=== PATIENT | male | born 1945 | race Caucasian/White ===

== ENCOUNTER 2024-05-09 09:47 | Inpatient (IN) | payer MEDICARE ==
[~2024-05-09] VITALS: Ht 182.9 cm; Wt 82.8 kg
[2024-05-09 10:28] LABS: BASOPHILS # (AUTO) 0.03 K/uL (0.00-0.20); BASOPHILS % (AUTO) 0.2 % (0.0-5.0); EOSINOPHILS # (AUTO) 0.06 K/uL (0.00-0.70); EOSINOPHILS % (AUTO) 0.4 % (0.0-8.0); HEMATOCRIT 51.8 % (42-54); IMMATURE GRANULOCYTE ABSOLUTE 0.16 K/uL (0-1); LYMPHOCYTES # (AUTO) 1.9 K/uL (1.0-4.8); LYMPHOCYTES % (AUTO) 13.7 % (21.0-51.0); MEAN CORPUSCULAR HEMOGLOBIN 28.4 pg (27.0-33.0); MEAN CORPUSCULAR HGB CONC 31.7 g/dL (32.0-36.0); MEAN CORPUSCULAR VOLUME 89.6 fL (79-99); MONOCYTES # (AUTO) 1.4 K/uL (0.1-1.0); NEUTROPHILS # (AUTO) 10.6 K/uL (1.8-7.7); NEUTROPHILS % (AUTO) 74.6 % (40.0-77.0); PLATELET COUNT (AUTO) 295 K/uL (130-400); RED BLOOD CELL COUNT(AUTO) 5.78 MIL/uL (4.50-6.20); RED CELL DISTRIBUTION WIDTH 12.7 % (11.0-15.5); WHITE BLOOD COUNT (AUTO) 14.2 K/uL (4.8-10.8)
[2024-05-09] MEDS: Solu-medROL 125MG VIAL IVP ONE (10:31)
[2024-05-09 10:38] LABS: CREATININE 0.7 mg/dL (0.5-1.3); POTASSIUM 3.6 mmol/L (3.5-5.1)
[2024-05-09 10:50] LABS: COVID19 (SARS ANTIGEN RAPID) PRESUMPTIVE NEGATIVE (NEGATIVE); INFLUENZA TYPE A Negative For Type A (NEGATIVE); INFLUENZA TYPE B Negative For Type B (NEGATIVE)
[2024-05-09 10:56] VITALS: PULSE 78; RESP 18
--- NOTE | 2024-05-09 11:00 | HMCIMG ---
CHEST 2VWS HISTORY: Shortness of breath COMPARISON: None FINDINGS: Frontal and lateral projections of the chest were obtained. There are mild bilateral pulmonary infiltrates suggestive of mild pulmonary vascular congestion with possible superimposed pneumonitis. The heart is not enlarged. Aortic calcifications are seen. Degenerative changes are seen of the thoracolumbar spine. IMPRESSION: 1. There are mild bilateral pulmonary infiltrates suggestive of mild pulmonary vascular congestion with possible superimposed pneumonitis.
[2024-05-09 11:07] LABS: B-TYPE NATRIURETIC PEPTIDE 21 pg/mL (0-100)
--- NOTE | 2024-05-09 11:08 | ERN ---
General Chief Complaint: Shortness of Breath Stated Complaint: SOB Time Seen by MD: 09:55 Time Seen by Midlevel: 09:55 Source: patient History of Present Illness Initial Comments Patient is a 79-year-old male with a past medical history of COPD presenting to the emergency department with increased shortness of breath that has been ongoing for the last two weeks. He also reports a productive cough. Denies fever, chills, or any other symptoms at this time. He was O2 dependent at home and is normally on 2-3 L as needed. Allergies: Coded Allergies: Penicillins (Unverified Allergy, Unknown, 05/09/24) Past Medical History Past Medical History: COPD, High Cholesterol Past Surgical History: Other Surgical History Other: RT SHOULDER SX, LOWER BACK SX. ABD HERNIA REPAIR ROS Dictation CONSTITUTIONAL: Negative except for HPI HEAD/FACE: Negative except for HPI EENT: Negative except for HPI RESPIRATORY: Negative except for HPI GASTROINTESTINAL/ABDOMINAL: Negative except for HPI GENITOURINARY: Negative except for HPI MUSCULOSKELETAL: Negative except for HPI INTEGUMENTARY: Negative except for HPI NEUROLOGICAL/PSYCH: Negative except for HPI HEMATOLOGIC/LYMPHATIC: Negative except for HPI All Systems Negative, Except as noted above. 13 point review of systems assessed and all negative except for above. Physical Exam Physical Exam Dictation Vital Signs reviewed General Appearance: Alert, oriented x 3, no acute distress, well developed, nourished. Head and Face: non-traumatic. Eyes: PERRL, pink conjunctivas, eyelid no trauma, anterior chamber with arcus senilis. Ears: Pinnas intact and no signs of trauma or erythema ear canals clear and no discharge TM no erythema Nose: No discharge, no bleeding. Oropharynx: Mouth normal, tongue pink, pharynx clear,no erythema, tonsils no exudates, no abscesses noted, mucous membrane moist Neck: Supple, non-tender, no thyromegaly, no masses, no JVD, no bruits Breast:Deferred Chest:No tenderness, no crepitus, no paradoxical movement, no retractions Lungs: Symmetric, rhonchi to bilateral lung cruz Heart: Regular rate, regular rhythm, no murmur, no gallops Vascular: no peripheral edema, Abdomen: Soft, positive bowel sounds, nondistended, no guarding, nontender, no rebound, no masses no hepatomegaly, no splenomegaly, no Marcelo's sign, no hernias. Rectal: Deferred Genital: Deferred Neurological: Normal speech, motor function intact, sensory function intact Musculoskeletal: Neck nontender, full range of motion, back nontender, full range of motion, Extremities: nontender, full range of motion Skin: Color pink, dry, no turgor, no rash, no lacerations, no abrasions, no contusions. Lymphatic: Deferred Results Laboratory and Microbiology Lab and Micro Result Laboratory Tests Test 05/09/24 09:50 05/09/24 10:16 Influenza Type A Antigen Negative For Type A Influenza Type B Antigen Negative For Type B SARS-CoV-2 Antigen (Rapid) PRESUMPTIVE NEGATIVE White Blood Count 14.2 K/uL (4.8-10.8) H Red Blood Count 5.78 MIL/uL (4.50-6.20) Hemoglobin 16.4 g/dL (14.0-18.0) Hematocrit 51.8 % (42-54) Mean Corpuscular Volume 89.6 fL (79-99) Mean Corpuscular Hemoglobin 28.4 pg (27.0-33.0) Mean Corpuscular Hemoglobin Concent 31.7 g/dL (32.0-36.0) L Red Cell Distribution Width 12.7 % (11.0-15.5) Platelet Count 295 K/uL (130-400) Mean Platelet Volume 10.1 fL (7.5-10.5) Immature Granulocyte % (Auto) 1.1 % (0-1) H Neutrophils (%) (Auto) 74.6 % (40.0-77.0) Lymphocytes (%) (Auto) 13.7 % (21.0-51.0) L Monocytes (%) (Auto) 10.0 % (3.0-13.0) Eosinophils (%) (Auto) 0.4 % (0.0-8.0) Basophils (%) (Auto) 0.2 % (0.0-5.0) Neutrophils # (Auto) 10.6 K/uL (1.8-7.7) H Lymphocytes # (Auto) 1.9 K/uL (1.0-4.8) Monocytes # (Auto) 1.4 K/uL (0.1-1.0) H Eosinophils # (Auto) 0.06 K/uL (0.00-0.70) Basophils # (Auto) 0.03 K/uL (0.00-0.20) Absolute Immature Granulocyte (auto 0.16 K/uL (0-1) Nucleated Red Blood Cells 0.0 % (0.0-0.19) Sodium Level 145 mmol/L (136-145) Potassium Level 3.6 mmol/L (3.5-5.1) Chloride Level 105 mmol/L (101-111) Carbon Dioxide Level 36 mmol/L (21-32) H Blood Urea Nitrogen 22 mg/dL (7-18) H Creatinine 0.7 mg/dL (0.5-1.3) Glomerular Filtration Rate Calc 95 mL/min (>90) Random Glucose 101 mg/dL (70-105) Total Calcium 9.3 mg/dL (8.5-10.1) Magnesium Level 2.00 mg/dL (1.80-2.40) Total Creatine Kinase 20 U/L (21-232) L Troponin I High Sensitivity 8 ng/L (4-75) B-Type Natriuretic Peptide 21 pg/mL (0-100) Procalcitonin < 0.05 ng/mL (0.05-0.5) L Labs Reviewed?: Yes MDM MDM: Differential diagnosis: COPD exacerbation, pneumonia, viral illness Rationale: Tests considered and ordered secondary to shared decision making include: Previous outside records reviewed: Old ER visits. Risk of complication and/or morbidity or mortality of patient management: None Medications-Per medication reconciliation Need for hospitalization: Patient does meet criteria for hospitalization. Need for emergency major/minor surgery: No There are no social concerns with this patient. Prescription drug management Prescriptions will include symptomatic care Patient's prior external medical records from other ER visits were reviewed by me as indicated. Prior testing and results from previous visits were reviewed. Prior tests were taken into account with medical decision making and resource utilization, independent historian/historians were used to obtain complete medical history. I independently interpreted the test that were performed, results were reviewed by me and considered findings on radiology if ordered. Medical management and examination interpretation discussions were had by me with other qualified healthcare professionals as indicated for the patient's care. ED Course Orders Procedure Category Date Status Time Influenza Type A & B, LAB 05/09/24 Complete Rapid 09:54 Covid19 (Sars Antigen LAB 05/09/24 Complete Rapid) 09:54 Chest 2vws RAD 1/24/25 Resulted 09:54 Cbc With Differential LAB 05/09/24 Complete 10:06 Basic Metabolic Panel LAB 05/09/24 Complete 10:06 B-Type Natriuretic LAB 05/09/24 Complete Peptide 10:06 Magnesium LAB 05/09/24 Complete 10:06 Creatine Kinase, Total LAB 05/09/24 Complete 10:06 Troponin I High LAB 05/09/24 Complete Sensitivity 10:06 Procalcitonin LAB 05/09/24 Complete 10:06 Ipratropium/Albuterol PHA 05/09/24 Complete Neb (Duoneb) 10:30 Methylprednisolone PHA 05/09/24 Complete Succ 125mg (Solu-Medr 10:30 Aztreonam (Azactam) PHA 05/09/24 In Process 11:30 12 Lead Ekg Tracing- EKG 05/09/24 Logged Technical 11:22 Current Medications Medications (Trade) Dose Ordered Sig/Nora Route PRN Reason Start Time Stop Time Status Last Admin Dose Admin Albuterol (DUOneb) 1 UDVIAL ONCE ONCE IH 05/09/24 10:30 05/09/24 10:31 DC Aztreonam (Azactam) 1 gm Q12H IVPB 05/09/24 11:30 05/19/24 11:29 Methylprednisolone Sodium Succinate (Solu-medROL 125MG) 125 mg ONCE ONCE IVP 05/09/24 10:30 05/09/24 10:31 DC 05/09/24 10:31 Vital Signs Date Time Temp Pulse Resp B/P (MAP) Pulse Ox O2 Delivery O2 Flow Rate FiO2 05/09/24 10:56 78 18 05/09/24 09:49 98.4 75 20 125/[address] [address] IMAGING REPORT Signed PATIENT: BAN PRATHER MR#: [id number] : 1945 SEX: M AGE: 79 LOCATION: [facility] ORDER 3 STATUS: REG ER REPORT#: [id number] SERVICE 3 REASON: SOB ORDERING PHYSICIAN: TU MARRERO MD PROCEDURE: CXR2VW - CHEST 2VWS CHEST 2VWS HISTORY: Shortness of breath COMPARISON: None FINDINGS: Frontal and lateral projections of the chest were obtained. There are mild bilateral pulmonary infiltrates suggestive of mild pulmonary vascular congestion with possible superimposed pneumonitis. The heart is not enlarged. Aortic calcifications are seen. Degenerative changes are seen of the thoracolumbar spine. IMPRESSION: 1. There are mild bilateral pulmonary infiltrates suggestive of mild pulmonary vascular congestion with possible superimposed pneumonitis. DICTATED BY: PENELOPE ADRIAN MD DATE: 05/09/24 1057 ELECTRONICALLY SIGNED BY: PENELOPE ADRIAN MD DATE: 05/09/24 1100 DX & DISP Disposition: Inpatient Departure Impression: Primary Impression: COPD exacerbation Additional Impression: Pneumonia Condition: Stable Referrals: SELF,REFERRAL (PCP) I have reviewed the case, and I agree with, Diagnosis and Plan I performed the substantive portion of the visit. I have reviewed and personally made and approve the management plan that is documented in the note by myself or the DOE. I acknowledge for responsibility for the patient's management plan. SHERRI BYRNE May 09, 2024 11:08
[2024-05-09] MEDS ORDERED: SOTA80TA PO (11:40)
[2024-05-09] MEDS ORDERED: BENZ-39 PO (11:41)
[2024-05-09] MEDS ORDERED: FINA5TAB41 PO (11:41)
[2024-05-09] MEDS ORDERED: UBID100C10 PO (11:41)
[2024-05-09] MEDS ORDERED: ROSU40 PO (11:41)
[2024-05-09] MEDS ORDERED: FLUT1BLS3 IH (11:41)
[2024-05-09] MEDS ORDERED: SACC250C9 PO (11:41)
[2024-05-09] MEDS ORDERED: ESOM40CA PO (11:41)
[2024-05-09] MEDS ORDERED: MONT-39 PO (11:41)
[2024-05-09] MEDS: AZTREONAM 1 GM VIAL IVPB SCH (11:43)
[2024-05-09] MEDS ORDERED: acetaMINOPHEN 500 MG TABLET PO PRN (12:00)
[2024-05-09] MEDS ORDERED: MAGNESIUM 2GM PREMIX 50ML 50 ML IV SCH (12:00)
[2024-05-09] MEDS ORDERED: PoTASSium chloRIDE 20MEQ/100ML 100 ML IV PRN (12:00)
[2024-05-09] MEDS ORDERED: PoTASSium chloRIDE 20MEQ ER 20 MEQ ERTAB PO PRN (12:00)
[2024-05-09] MEDS ORDERED: guaiFENesin-DM 200/20MG 10ML PO PRN (12:00)
[2024-05-09] MEDS ORDERED: PoTASSium chl 10% ELIXIR 20MEQ 20 MEQ/15 ML UDCUP PO PRN (12:00)
[2024-05-09] MEDS ORDERED: ondanSETRON 4MG INJ IVP PRN (12:00)
--- NOTE | 2024-05-09 12:13 | HP ---
[facility] PH[facility] Date of Service: May 09, 2024 Time of Service: 12:02 HISTORY OF PRESENT ILLNESS: Date of service: 05/09/2024, patient was seen in ER room 5, 79-year-old male with underlying history of COPD diagnosed about 10 years ago, on home oxygen supplementation usually at night, needing 2-3 L, hypertension, hyperlipidemia, cardiac arrhythmia who presented to the ER for further evaluati on of cough, shortness of breath. Symptoms have been ongoing for the past two weeks and patient reports having subjective fevers, chills, malaise, and wheezing. He has been on outpatient course of antibiotics with Keflex and doxycycline with minimal improvement of symptoms. Patient reports that he has adverse reaction to penicillin with diarrhea. Denies any shortness of breath, rash or signs of anaphylaxis. Patient does report that he has adverse reaction to Levaquin and Flagyl which causes insomnia as well. Patient reports having history of cardiac arrhythmia and is on sotalol as outpatient. Patient presentation to the hospital was noted to be afebrile with T-max of 98.4 F, heart rate of 75, blood pressure of 125/85 and patient was noted to be hypoxemic with O2 saturations of 87%. Chest x-ray showed bilateral infiltrates concerning for pneumonia. Patient will be admitted for management of acute COPD exacerbation with failure of outpatient therapy. Patient will receive IV antibiotics, IV steroids, we will obtain a CT chest without contrast in consultation with pulmonology will be requested. Anticipate hospitalization for at least 48-72 hours pending improvement of clinical status. REVIEW OF SYSTEMS CONSTITUTIONAL: Denies fevers, chills, or night sweats. No unintentional weight loss reported. NEUROLOGICAL: Denies headache, amaurosis fugax, motor weakness, sensory deficit, vertigo/spinning sensation, gait abnormalities, or tremors. ENT: No hearing loss, otalgia, otorrhea, rhinitis, rhinorrhea, hoarseness, or sore throat. CARDIOVASCULAR: Denies any exertional angina, dyspnea on exertion, orthopnea, paroxysmal nocturnal dyspnea, palpitations, life-threatening arrhythmias, claudication. PULMONARY: Shortness of breath, cough, congestion SLEEP: Denies morning headaches, daytime somnolence or napping. Denies difficulty falling asleep, staying asleep, waking from sleep. Denies knowledge of snoring. GASTROINTESTINAL: Denies any type of dysphagia to either liquids or solids. Denies nausea, vomiting, pyrosis, early satiety, abdominal pain, diarrhea, constipation, or changes in stool consistency or caliber. Denies coffee-ground emesis, hematemesis, hematochezia, or melanotic stools. GENITOURINARY: Denies frequency, urgency, nocturia, hematuria or incontinence (Storage/Irritative symptoms.) Low urinary stream, straining to void, urinary intermittency or hesitancy, splitting of the voiding stream, terminal dribbling. ENDOCRINOLOGIC: Denies polyuria, polydipsia, polyphagia or heat/cold intolerances. HEMATOLOGIC: Denies thrombophilia/previous clots, or coagulopathy/bleeding disorders. ONCOLOGIC: Denies personal history of malignancy. DERMATOLOGIC: Denies rashes or pruritus. PSYCHIATRIC: Denies any suicidal or homicidal ideation. Denies hallucinations. PAST MEDICAL HISTORY: Cardiac arrhythmia maintained on chronic therapy with sotalol, COPD, chronic hypoxemic respiratory failure on outpatient home oxygen therapy, BPH, hyperlipidemia PAST SURGICAL HISTORY: Right shoulder surgery, lower back surgery, abdominal hernia surgery PAST SOCIAL HISTORY: Smoked for about 27 years till the age of 52, smoked about 1-3 packs previously, denies any significant alcohol or illicit drug use FAMILY HISTORY: Denies pertinent family history Allergies: Patient has adverse reaction to penicillin, Levaquin, Flagyl Home medications: Patient's home medication list include Tessalon 100 mg b.i.d., Nexium 40 mg daily, finasteride 5 mg daily, Trelegy daily, Singulair 10 mg daily, Crestor 40 mg daily, probiotic daily, sotalol 40 mg b.i.d., Co Q10 daily Coded Allergies: Penicillins (Unverified Allergy, Unknown, 05/09/24) PHYSICAL EXAM GENERAL APPEARANCE: The patient is awake, alert, and oriented, in no acute cardiopulmonary distress. NEUROLOGICAL: Cranial nerves II-XII grossly intact. Motor is 5/5 in bilateral upper and lower extremities proximal to distal. No sensory deficits. HEENT: Face is symmetric. Pupils are equal and reactive. Extraocular movements are intact. NECK: Supple. No JVD. No thyromegaly. No submental, submandibular, pre- /postauricular, occipital or supraclavicular lymphadenopathy. CHEST: Normal chest expansion. No Telemetry. LUNGS: Absence of any rales, rhonchi or any wheezing. CARDIOVASCULAR: Regular. S1 and S2 normal. No appreciable rubs, murmurs or gallops. ABDOMEN: Soft, nontender, and nondistended. There is no rebound, voluntary guarding, or rigidity. : Deferred. No Perez. EXTREMITIES: Non-edematous and not cyanotic. No clubbing. Good capillary refill. SKIN: No skin breakdown. Vital Sign (Last 24 Hours) 05/09/24 05/09/24 09:49 10:56 Temp 98.4 Pulse 78 Resp 18 B/P (MAP) 125/85 Pulse Ox 87 O2 Flow Rate 0 LABS: Laboratory: Test 05/09/24 10:16 05/09/24 09:50 Range/Units White Blood Count 14.2 H 4.8-10.8 K/uL Red Blood Count 5.78 4.50-6.20 MIL/uL Hemoglobin 16.4 14.0-18.0 g/dL Hematocrit 51.8 42-54 % Mean Corpuscular Volume 89.6 79-99 fL Mean Corpuscular Hemoglobin 28.4 27.0-33.0 pg Mean Corpuscular Hemoglobin Concent 31.7 L 32.0-36.0 g/dL Red Cell Distribution Width 12.7 11.0-15.5 % Platelet Count 295 130-400 K/uL Mean Platelet Volume 10.1 7.5-10.5 fL Immature Granulocyte % (Auto) 1.1 H 0-1 % Neutrophils (%) (Auto) 74.6 40.0-77.0 % Lymphocytes (%) (Auto) 13.7 L 21.0-51.0 % Monocytes (%) (Auto) 10.0 3.0-13.0 % Eosinophils (%) (Auto) 0.4 0.0-8.0 % Basophils (%) (Auto) 0.2 0.0-5.0 % Neutrophils # (Auto) 10.6 H 1.8-7.7 K/uL Lymphocytes # (Auto) 1.9 1.0-4.8 K/uL Monocytes # (Auto) 1.4 H 0.1-1.0 K/uL Eosinophils # (Auto) 0.06 0.00-0.70 K/uL Basophils # (Auto) 0.03 0.00-0.20 K/uL Absolute Immature Granulocyte (auto 0.16 0-1 K/uL Nucleated Red Blood Cells 0.0 0.0-0.19 % Sodium Level 145 136-145 mmol/L Potassium Level 3.6 3.5-5.1 mmol/L Chloride Level 105 101-111 mmol/L Carbon Dioxide Level 36 H 21-32 mmol/L Blood Urea Nitrogen 22 H 7-18 mg/dL Creatinine 0.7 0.5-1.3 mg/dL Glomerular Filtration Rate Calc 95 >90 mL/min Random Glucose 101 70-105 mg/dL Total Calcium 9.3 8.5-10.1 mg/dL Magnesium Level 2.00 1.80-2.40 mg/dL Total Creatine Kinase 20 L 21-232 U/L Troponin I High Sensitivity 8 4-75 ng/L B-Type Natriuretic Peptide 21 0-100 pg/mL Procalcitonin < 0.05 L 0.05-0.5 ng/mL Influenza Type A Antigen Negative For Type A NEGATIVE Influenza Type B Antigen Negative For Type B NEGATIVE SARS-CoV-2 Antigen (Rapid) PRESUMPTIVE NEGATIVE NEGATIVE Current Medications Medications (Trade) Dose Ordered Sig/Nora Route PRN Reason Start Time Stop Time Status Last Admin Dose Admin Acetaminophen (TYLenol 500MG TAB) 500 mg Q6H PRN PO MILD PAIN (1-3) 05/09/24 12:00 06/08/24 11:59 Aztreonam (Azactam) 1 gm Q12H IVPB 05/09/24 11:30 05/09/24 11:48 DC 05/09/24 11:43 1 GM Benzonatate (Tessalon 100mg Caps) 100 mg BID PO 05/09/24 21:00 06/08/24 20:59 Cefepime HCl (MAXipime 2 gm vial) 2 gm Q12H IVPB 05/09/24 12:00 05/19/24 11:59 UNV Famotidine (Pepcid 20mg Vial) 20 mg BID IV 05/09/24 21:00 06/08/24 20:59 Finasteride (PROscar 5 MG TAB) 5 mg DAILY PO 05/10/24 09:00 06/09/24 08:59 Guaifenesin/ Dextromethorphan (RobiTUSSin DM 200/20MG 10ML) 10 ml Q6H PRN PO COUGH 05/09/24 12:00 06/08/24 11:59 Home Med (Home Medication) Fluticasone/ Umeclidin/ Vilan... DAILY IH 05/10/24 09:00 06/09/24 08:59 Magnesium Sulfate 50 ml @ 0 mls/hr PROTOCOL IV 05/09/24 12:00 06/08/24 11:59 Methylprednisolone Sodium Succinate (Solu-medROL 40MG) 40 mg Q8H IVP 05/09/24 17:00 06/08/24 16:59 Miscellaneous Medication (Rosuvastatin Calcium (Crestor)) 1 tab DAILY PO 05/10/24 09:00 06/09/24 08:59 UNV Miscellaneous Medication (Saccharomyces Boulardii (Probiotic)) 1 cap DAILY PO 05/10/24 09:00 06/09/24 08:59 UNV Miscellaneous Medication (Ubidecarenone (Coq-10)) 100 mg DAILY PO 05/10/24 09:00 06/09/24 08:59 UNV Montelukast Sodium (SinguLAIR) 10 mg DAILY PO 05/10/24 09:00 06/09/24 08:59 Ondansetron HCl (zoFRAN 4MG INJ) 4 mg Q8H PRN IVP NAUSEA/VOMITING 05/09/24 12:00 06/08/24 11:59 Pantoprazole Sodium (PROTonix 40MG TAB) 40 mg DAILY PO 05/10/24 09:00 06/09/24 08:59 Potassium Chloride 100 ml @ 100 mls/hr AD PRN IV POTASSIUM PROTOCOL 05/09/24 12:00 06/08/24 11:59 Potassium Chloride (K-Dur/Klor-Con 20meq) 20 meq AD PRN PO POTASSIUM PROTOCOL 05/09/24 12:00 06/08/24 11:59 Potassium Chloride (KCl 10% Elixir 20meq/15ml) 20 meq AD PRN PO POTASSIUM PROTOCOL 05/09/24 12:00 06/08/24 11:59 Sotalol HCl (BetaPACE) 40 mg BID PO 05/09/24 21:00 06/08/24 20:59 UNV DIAGNOSTICS / RADIOLOGY: SERVICE REASON: SOB ORDERING PHYSICIAN: TU MARRERO MD PROCEDURE: CXR2VW - CHEST 2VWS CHEST 2VWS HISTORY: Shortness of breath COMPARISON: None FINDINGS: Frontal and lateral projections of the chest were obtained. There are mild bilateral pulmonary infiltrates suggestive of mild pulmonary vascular congestion with possible superimposed pneumonitis. The heart is not enlarged. Aortic calcifications are seen. Degenerative changes are seen of the thoracolumbar spine. IMPRESSION: 1. There are mild bilateral pulmonary infiltrates suggestive of mild pulmonary vascular congestion with possible superimposed pneumonitis. DICTATED BY: PENELOPE ADRIAN MD DATE: 05/09/24 1057 ELECTRONICALLY SIGNED BY: PENELOPE ADRIAN MD DATE: 05/09/24 1100 ASSESSMENT: Acute on chronic COPD exacerbation, POA Failure of outpatient therapy for COPD exacerbation, POA Acute on chronic hypoxemic respiratory failure, POA History of COPD, POA Concern for developing community-acquired pneumonia, POA Leukocytosis, POA History of cardiac arrhythmia, POA BPH, POA PLAN: Patient will be admitted to medical-surgical floor under telemetry monitoring Continue with supplemental O2 therapy to maintain O2 saturations greater than 90% We will start IV hydration with NS at 75 mL/hour We will obtain a CT chest without contrast to assess for developing pneumonia, obtain respiratory culture, blood culture We will start broad-spectrum antibiotics with IV cefepime 2 g b.i.d. We will start IV Solu-Medrol 40 mg q.8 hours We will request consultation with pulmonology Home medications were reconciled and updated Continue with PPI for GI prophylaxis, Lovenox for DVT prophylaxis Anticipate hospitalization for 48-72 hours pending improvement of clinical status and follow up on respiratory cultures Date of service: 05/09/2024 Plan of care was discussed with patient and at bedside. Greg Pugh MD Advanced Care Planning: Which of the following were discussed: Hospice care: Yes __ No _X_ Therapeutic options: Yes _X_ No __ Advance directives: Yes _X_ No __ Other discussions: Discussed with who?: Patient Voluntary nature of this service was explained to the patient? Yes _x_ No __ Amount of time spent: 20 minutes GREG PUGH MD May 09, 2024 12:12
[2024-05-09 12:21] LABS: ALBUMIN 2.8 g/dL (3.5-5.0); BILIRUBIN,DIRECT 0.2 mg/dL (0.0-0.3); BILIRUBIN,TOTAL 0.7 mg/dL (0.2-1.0); MAGNESIUM 1.9 mg/dL (1.80-2.40); TOTAL PROTEIN, SERUM 6.8 g/dL (6.0-8.3)
[2024-05-09] MEDS: IpraTROPium/alBUTERol SULFATE 3 ML SOLUTION IH ONE (12:29)
[2024-05-09] MEDS: SODIUM CHLORIDE 3% FOR INHALATION 4 ML/AMP VIAL.NEB IH ONE ×2 (12:32→19:10)
[2024-05-09 12:57] LABS: ABG BASE EXCESS 1.6 mmol/L (-2.0-3.0); ABG HCO3 27.8 mmol/L (21.0-28.0); ABG OXYGEN SATURATION 91.6 % (94.0-98.0); ABG PCO2 49 mmHg (35-48); ABG PH 7.372 (7.350-7.450); CARBON MONOXIDE 1.2 % (0.5-1.5); DEVICE COMMENT LBJUAN; HHb 8.3; PO2, ARTERIAL BG 59.1 mmHg (83.0-108.0); VENT MODE, BG NC (ROOM AIR)
[2024-05-09] MEDS: ceFEPime HCL 2 GM VIAL IVPB SCH (13:04)
[2024-05-09] MEDS: 0.9%NACL 1000ML 1,000 ML IV SCH (13:04)
--- NOTE | 2024-05-09 13:08 | EKG ---
[facility] Test Date: 2024-05-09 Test Time: 11:27:24 Pat Name: BAN PRATHER Department: [facility] Room: 414 Gender: M Quill Reamer: [id number] : 1945 Requested By: JENISE VILLARREAL Order Number: [id number] Reading MD: Melody Covarrubias Measurements Intervals Malone Rate: 59 P: -25 SC: 93 QRS: 75 QRSD: 80 T: 81 QT: 416 QTc: 422 Interpretive Statements Ectopic atrial rhythm No previous ECG available for comparison Electronically Signed On 05-12-2024 15:53:17 MELTER SUPERVISOR by Melody Covarrubias Please click the below link to view image of tracing.
[2024-05-09 13:10] VITALS: PULSE 71; RESP 18; O2SAT 94
--- NOTE | 2024-05-09 15:25 | HMCIMG ---
CT CHEST W/O CONTRAST HISTORY: COPD COMPARISON: None TECHNIQUE: Multiple sequential axial images of the chest were obtained from the thoracic inlet through upper abdomen. Patient was not given contrast through intravenous route. FINDINGS: There are bilateral interstitial fibrosis. Extensive plaque formations are seen with COPD changes. Superimposed infiltrates cannot be excluded. There is no evidence of pulmonary nodule or parenchymal disease. No pleural effusion or pericardial effusion is seen. There is no evidence of pneumothorax. There are normal size mediastinal and hilar lymph nodes. The heart is not enlarged. Coronary arterial calcifications are seen. Degenerative changes of the thoracolumbar spine are present. There is no evidence of adrenal nodule. IMPRESSION: 1. No evidence of pulmonary nodule or effusion is seen. Interstitial lung disease with COPD and blebs formation. Superimposed infiltrates cannot be excluded. CT was performed with one or more following dose reduction techniques: automated exposure control, adjustment of the mA and kv according to patient's size, or use of a iterative reconstruction technique.
[2024-05-09] MEDS: Solu-medROL 40MG VIAL IVP SCH (17:23)
[2024-05-09 19:07] VITALS: PULSE 73; RESP 18
[2024-05-09] MEDS: IpraTROPium/alBUTERol SULFATE 3 ML SOLUTION IH SCH (19:07)
[2024-05-09 19:09] VITALS: PULSE 73; RESP 18; O2SAT 94
--- NOTE | 2024-05-09 19:28 | NUR ---
PT CARE ASSUMED AT THIS TIME
[2024-05-09] MEDS: FAMOTIDINE 20MG VIAL IV SCH (21:39)
[2024-05-09] MEDS: soTALol HCL 80 MG TABLET PO SCH (21:41)
[2024-05-09] MEDS: atorVAStatin 40 MG TABLET PO SCH (21:41)
[2024-05-09] MEDS: BENZONATATE 100 MG CAPSULE PO SCH (21:41)
--- NOTE | 2024-05-09 23:11 | CONS ---
[facility] CONSULTATION NOTE Date Patient Seen: May 09, 2024 Time of Visit: 23:05 Supervising Physician: [DR CARMEN ESPOSITO ] Reason for Consultation: [ COPD EXACERBATION] Primary Care Physician: [ ] Outpatient Specialists: [ ] Inpatient Consults: [ ] PROBLEM LIST: 1. COPD EXACERBATION , POA 2. ACUTE HYPOXEMIC HYPERCAPNIC RESPIRATORY FAILURE SECONDARY TO COPD EXACERBATION, POA 3. BILATERAL LOWER LOBE PNEUMONIA, POA 4. ESSENTIAL HYPERTENSION, POA CHIEF COMPLAINT: Shortness of breath, fever HPI: Patient is a 79-year-old male with past medical history significant for COPD diagnose about 10 years ago, O2 dependent, hypertension, BPH, and a surgical history of back surgery, left shoulder surgery, abdominal hernia repair, presents to the emergency department complaining of worsening shortness of breath associated with fever for two days. Patient reports that for the past two days, he has been experiencing a progressive increased work of breathing as sociated with fever. Today, due to the worsening of the symptom, patient decided to come to emergency department for further evaluation and treatment. Patient denies chills, nausea, vomiting, diarrhea, chest pain, dizziness, or any other symptoms. The workup in the emergency department shows a WBC of 14.2, pCO2 of 49, PO2 of 59.1. In the emergency department, patient was started on antibiotics and received DuoNebs treatment. Patient will be admitted to medical floor for further evaluation and treatment. PAST MEDICAL HX: see above PAST SURGICAL HX: noncontributory SOCIAL HISTORY: No tobacco, ETOH, or illicit drug use Coded Allergies: Penicillins (Unverified Allergy, Unknown, 05/09/24) REVIEW OF SYSTEMS: 12 point ROS reviewed with patient. Pertinent positives mentioned above. Otherwise negative. PHYSICAL EXAM: GENERAL: alert, weak, awake oriented x 3 HEENT: EOMI, Sclera non icteric, moist mucosa NECK: Supple, no JVD, trachea midline LUNGS: Diminished breath sounds bilaterally. No wheezes HEART: Regular rate and rhythm. Normal S1 and S2, without murmurs ABD: Abdomen soft, nontender. Bowel sounds present EXT: No clubbing cyanosis or edema NEURO: Alert and oriented to person, follows commands Vital Signs (last 8hr) Date Time Temp Pulse Resp B/P (MAP) Pulse Ox O2 Delivery O2 Flow Rate FiO2 05/09/24 23:02 67 16 128/67 91 Nasal Cannula* 3 32 05/09/24 21:30 73 21 136/70 92 Nasal Cannula* 3 32 05/09/24 20:06 74 20 148/78 91 Nasal Cannula* 2 28 05/09/24 19:09 73 18 N/Cannula Low lpm 4.0 36 05/09/24 19:07 73 18 05/09/24 18:43 98.1 75 20 135/65 94 Nasal Cannula* 4.0 N/A 05/09/24 16:57 70 20 163/85 94 Nasal Cannula* 4 36 LABS: Hematology Labs: Test 05/09/24 11:55 05/09/24 10:16 Range/Units Erythrocyte Sedimentation Rate 20 0-20 MM/HR White Blood Count 14.2 H 4.8-10.8 K/uL Red Blood Count 5.78 4.50-6.20 MIL/uL Hemoglobin 16.4 14.0-18.0 g/dL Hematocrit 51.8 42-54 % Mean Corpuscular Volume 89.6 79-99 fL Mean Corpuscular Hemoglobin 28.4 27.0-33.0 pg Mean Corpuscular Hemoglobin Concent 31.7 L 32.0-36.0 g/dL Red Cell Distribution Width 12.7 11.0-15.5 % Platelet Count 295 130-400 K/uL Mean Platelet Volume 10.1 7.5-10.5 fL Immature Granulocyte % (Auto) 1.1 H 0-1 % Neutrophils (%) (Auto) 74.6 40.0-77.0 % Lymphocytes (%) (Auto) 13.7 L 21.0-51.0 % Monocytes (%) (Auto) 10.0 3.0-13.0 % Eosinophils (%) (Auto) 0.4 0.0-8.0 % Basophils (%) (Auto) 0.2 0.0-5.0 % Neutrophils # (Auto) 10.6 H 1.8-7.7 K/uL Lymphocytes # (Auto) 1.9 1.0-4.8 K/uL Monocytes # (Auto) 1.4 H 0.1-1.0 K/uL Eosinophils # (Auto) 0.06 0.00-0.70 K/uL Basophils # (Auto) 0.03 0.00-0.20 K/uL Absolute Immature Granulocyte (auto 0.16 0-1 K/uL Nucleated Red Blood Cells 0.0 0.0-0.19 % Chemistry Labs: Test 05/09/24 11:55 05/09/24 10:16 Range/Units Magnesium Level 1.90 1.80-2.40 mg/dL Total Bilirubin 0.7 0.2-1.0 mg/dL Direct Bilirubin 0.2 0.0-0.3 mg/dL Aspartate Amino Transf (AST/SGOT) 12 10-37 U/L Alanine Aminotransferase (ALT/SGPT) 23 12-78 U/L Alkaline Phosphatase 61 50-136 U/L C-Reactive Protein, Quantitative 55.40 H 0.5-3.0 mg/L Total Protein 6.8 6.0-8.3 g/dL Albumin 2.8 L 3.5-5.0 g/dL Sodium Level 145 136-145 mmol/L Potassium Level 3.6 3.5-5.1 mmol/L Chloride Level 105 101-111 mmol/L Carbon Dioxide Level 36 H 21-32 mmol/L Blood Urea Nitrogen 22 H 7-18 mg/dL Creatinine 0.7 0.5-1.3 mg/dL Glomerular Filtration Rate Calc 95 >90 mL/min Random Glucose 101 70-105 mg/dL Total Calcium 9.3 8.5-10.1 mg/dL Total Creatine Kinase 20 L 21-232 U/L Troponin I High Sensitivity 8 4-75 ng/L B-Type Natriuretic Peptide 21 0-100 pg/mL Procalcitonin < 0.05 L 0.05-0.5 ng/mL DIAGNOSTICS / RADIOLOGY RESULTS: [ ] PLAN NEURO: Minimize central acting medications as possible. Maintain fall precautions, adequate lighting during the day PULMONARY: Supplemental 02 as needed to keep saturation above 92% Maintain aspiration precautions at all times DuoNebs every 6 hours p.r.n. for shortness of breath CARDIOVASCULAR: Follow hemodynamics. Vital signs per facility protocol GI & NUTRITION: Continue with nutritional support. Continue stool softeners and laxatives as needed. KIDNEYS & ELECTROLYTES: Strict monitoring of intake, output and overall fluid balance. Avoid nephrotoxic medications to the extent possible. Medications to be dosed according to renal function. Monitor electrolytes and replace as needed ENDOCRINE: Maintain blood glucose between 100-180 at all times. Hypoglycemia protocol in place INFECTIOUS DISEASE: Trend temperature, WBC and procalcitonin level Follow cultures, deescalate antibiotics as soon as possible. Panculture if new onset fever Continue current antibiotic ONCOLOGY/HEMATOLOGY/COAGULATION: Monitor for s/s of bleeding Monitor hemoglobin, coagulation studies as needed SKIN: Pressure ulcer prevention per facility protocol Specialty mattress ORTHO/REHAB: Continue PT/OT Prophylaxis: Continue GI and DVT prophylaxis Code Status: Full Resuscitation Disposition: TBD Other: Total patient care time exceeds 35 minutes excluding all procedures. Case discussed with Dr.SY ESPOSITO, and the above plan was formulated. MARIELA RAMÍREZ May 09, 2024 23:11
--- NOTE | 2024-05-09 23:13 | NUR ---
REPORT GIVEN TO JAY VASQUEZ AT THIS TIME
[2024-05-09] MEDS ORDERED: IpraTROPium/alBUTERol SULFATE 3 ML SOLUTION IH PRN (23:30)
[2024-05-10] VITALS (13 sets, daily range): BP systolic 117–175; BP diastolic 76–88; PULSE 57–77; RESP 18–24; TEMP 97.4–98.4; O2SAT 91–96
[2024-05-10] MEDS: Solu-medROL 40MG VIAL IVP SCH (03:13)
[2024-05-10] MEDS: ceFEPime HCL 2 GM VIAL IVPB SCH (03:13)
--- NOTE | 2024-05-10 07:25 | PN ---
[facility] PROGRESS NOTE Date of Service: May 10, 2024 Time of Service: 07:25 SUBJECTIVE: [ The patient is a 79 year old male with history of COPD on home oxygen, currently on oxygen her at 3 LPM via NC tolerating well, oxygen saturation ranging from 93-95%. his CO2 slowly improving from 36 to 34, . Overall, his condition has improved, he denies chest pain, shortness of breath, chills, fever, nausea or vomiting. His blood work up today showed improved WBC from 14.2 to 12.7 continues on Cefepime, Zithromax . His potassium today went up from 3.6 to 5.4. He was given one dose of Kayexalate and now he has scheduled Duonebs BID scheduled. ] REVIEW OF SYSTEMS CONSTITUTIONAL: Denies fevers, chills, or night sweats. No unintentional weight loss reported. NEUROLOGICAL: Denies headache, amaurosis fugax, motor weakness, sensory deficit, vertigo/spinning sensation, gait abnormalities, or tremors. ENT: No hearing loss, otalgia, otorrhea, rhinitis, rhinorrhea, hoarseness, or sore throat. CARDIOVASCULAR: Denies any exertional angina, dyspnea on exertion, orthopnea, paroxysmal nocturnal dyspnea, palpitations, life-threatening arrhythmias, claudication. PULMONARY: Shortness of breath, cough, congestion SLEEP: Denies morning headaches, daytime somnolence or napping. Denies difficulty falling asleep, staying asleep, waking from sleep. Denies knowledge of snoring. GASTROINTESTINAL: Denies any type of dysphagia to either liquids or solids. Denies nausea, vomiting, pyrosis, early satiety, abdominal pain, diarrhea, constipation, or changes in stool consistency or caliber. Denies coffee-ground emesis, hematemesis, hematochezia, or melanotic stools. GENITOURINARY: Denies frequency, urgency, nocturia, hematuria or incontinence ( Storage/Irritative symptoms.) Low urinary stream, straining to void, urinary intermittency or hesitancy, splitting of the voiding stream, terminal dribbling. ENDOCRINOLOGIC: Denies polyuria, polydipsia, polyphagia or heat/cold intolerances. HEMATOLOGIC: Denies thrombophilia/previous clots, or coagulopathy/bleeding disorders. ONCOLOGIC: Denies personal history of malignancy. DERMATOLOGIC: Denies rashes or pruritus. PSYCHIATRIC: Denies any suicidal or homicidal ideation. Denies hallucinations. PHYSICAL EXAM GENERAL APPEARANCE: The patient is awake, alert, and oriented, in no acute cardiopulmonary distress. NEUROLOGICAL: Cranial nerves II-XII grossly intact. Motor is 5/5 in bilateral upper and lower extremities proximal to distal. No sensory deficits. HEENT: Face is symmetric. Pupils are equal and reactive. Extraocular movements are intact. NECK: Supple. No JVD. No thyromegaly. No submental, submandibular, pre- /postauricular, occipital or supraclavicular lymphadenopathy. CHEST: Normal chest expansion. No Telemetry. LUNGS: Absence of any rales, rhonchi or any wheezing. CARDIOVASCULAR: Regular. S1 and S2 normal. No appreciable rubs, murmurs or gallops. ABDOMEN: Soft, nontender, and nondistended. There is no rebound, voluntary guarding, or rigidity. : Deferred. No Perez. EXTREMITIES: Non-edematous and not cyanotic. No clubbing. Good capillary refill. SKIN: No skin breakdown. Vital Signs (last 8hr) Date Time Temp Pulse Resp B/P (MAP) Pulse Ox O2 Delivery O2 Flow Rate FiO2 05/10/24 07:16 66 18 N/Cannula Low lpm 4.0 36 05/10/24 07:12 66 18 05/10/24 04:00 97.7 63 22 150/85 92 Nasal Cannula 3.0 05/10/24 00:23 70 18 05/10/24 00:00 97.5 71 24 175/88 91 Nasal Cannula 3.0 LABS: Laboratory: Test 05/09/24 12:53 05/09/24 11:55 05/09/24 10:16 05/09/24 09:50 Range/Units Blood Gas Specimen Type Arterial Arterial Blood pH 7.372 7.350-7.450 Arterial Blood Partial Pressure CO2 49 H 35-48 mmHg Arterial Blood Partial Pressure O2 59.1 L 83.0-108.0 mmHg Arterial Blood HCO3 27.8 21.0-28.0 mmol/L Arterial Blood Oxygen Saturation 91.6 L 94.0-98.0 % Arterial Blood Base Excess 1.6 -2.0-3.0 mmol/L Hemoglobin (Blood Gas) 15.9 13.5-17.5 g/dL Sodium (Blood Gas) 141 136-145 MMOL/L Bedside Potassium (Blood Gas) 3.9 3.4-4.5 MMOL/L Bedside Chloride (Blood Gas) 102 98-107 MMOL/L Bedside Glucose (Blood Gas) 131 H 65-95 MG/DL Bedside Ionized Calcium (Blood Gas) 1.22 1.15-1.33 MMOL/L Bedside Lactic Acid (Blood Gas) 1.32 H 0.36-0.75 MMOL/L Blood Gas Temperature 37.0 35.5-37.0 CELSIUS Blood Gas Flow-by 3.00 0.00-15.00 L/min Blood Gas Vent Mode NC ROOM AIR FiO2 32.0 % Blood Gas Specimen Comment [id number] Erythrocyte Sedimentation Rate 20 0-20 MM/HR Magnesium Level 1.90 1.80-2.40 mg/dL Total Bilirubin 0.7 0.2-1.0 mg/dL Direct Bilirubin 0.2 0.0-0.3 mg/dL Aspartate Amino Transf (AST/SGOT) 12 10-37 U/L Alanine Aminotransferase (ALT/SGPT) 23 12-78 U/L Alkaline Phosphatase 61 50-136 U/L C-Reactive Protein, Quantitative 55.40 H 0.5-3.0 mg/L Total Protein 6.8 6.0-8.3 g/dL Albumin 2.8 L 3.5-5.0 g/dL White Blood Count 14.2 H 4.8-10.8 K/uL Red Blood Count 5.78 4.50-6.20 MIL/uL Hemoglobin 16.4 14.0-18.0 g/dL Hematocrit 51.8 42-54 % Mean Corpuscular Volume 89.6 79-99 fL Mean Corpuscular Hemoglobin 28.4 27.0-33.0 pg Mean Corpuscular Hemoglobin Concent 31.7 L 32.0-36.0 g/dL Red Cell Distribution Width 12.7 11.0-15.5 % Platelet Count 295 130-400 K/uL Mean Platelet Volume 10.1 7.5-10.5 fL Immature Granulocyte % (Auto) 1.1 H 0-1 % Neutrophils (%) (Auto) 74.6 40.0-77.0 % Lymphocytes (%) (Auto) 13.7 L 21.0-51.0 % Monocytes (%) (Auto) 10.0 3.0-13.0 % Eosinophils (%) (Auto) 0.4 0.0-8.0 % Basophils (%) (Auto) 0.2 0.0-5.0 % Neutrophils # (Auto) 10.6 H 1.8-7.7 K/uL Lymphocytes # (Auto) 1.9 1.0-4.8 K/uL Monocytes # (Auto) 1.4 H 0.1-1.0 K/uL Eosinophils # (Auto) 0.06 0.00-0.70 K/uL Basophils # (Auto) 0.03 0.00-0.20 K/uL Absolute Immature Granulocyte (auto 0.16 0-1 K/uL Nucleated Red Blood Cells 0.0 0.0-0.19 % Sodium Level 145 136-145 mmol/L Potassium Level 3.6 3.5-5.1 mmol/L Chloride Level 105 101-111 mmol/L Carbon Dioxide Level 36 H 21-32 mmol/L Blood Urea Nitrogen 22 H 7-18 mg/dL Creatinine 0.7 0.5-1.3 mg/dL Glomerular Filtration Rate Calc 95 >90 mL/min Random Glucose 101 70-105 mg/dL Total Calcium 9.3 8.5-10.1 mg/dL Total Creatine Kinase 20 L 21-232 U/L Troponin I High Sensitivity 8 4-75 ng/L B-Type Natriuretic Peptide 21 0-100 pg/mL Procalcitonin < 0.05 L 0.05-0.5 ng/mL Influenza Type A Antigen Negative For Type A NEGATIVE Influenza Type B Antigen Negative For Type B NEGATIVE SARS-CoV-2 Antigen (Rapid) PRESUMPTIVE NEGATIVE NEGATIVE Current Medications Medications (Trade) Dose Ordered Sig/Nora Route PRN Reason Start Time Stop Time Status Last Admin Dose Admin Acetaminophen (TYLenol 500MG TAB) 500 mg Q6H PRN PO MILD PAIN (1-3) 05/09/24 12:00 06/08/24 11:59 Albuterol (DUOneb) 1 UDVIAL Q6H PRN IH SHORTNESS OF BREATH 05/09/24 23:30 06/08/24 23:29 Albuterol (DUOneb) 1 udvial [id number] IH 05/09/24 18:00 06/08/24 17:59 05/10/24 07:12 1 UDVIAL Atorvastatin Calcium (LIPItor 40MG) 80 mg HS PO 05/09/24 21:00 06/08/24 20:59 05/09/24 21:41 80 MG Aztreonam (Azactam) 1 gm Q12H IVPB 05/09/24 11:30 05/09/24 11:48 DC 05/09/24 11:43 1 GM Benzonatate (Tessalon 100mg Caps) 100 mg BID PO 05/09/24 21:00 06/08/24 20:59 05/09/24 21:41 100 MG Cefepime HCl (MAXipime 2 gm vial) 2 gm Q12H IVPB 05/09/24 12:00 05/10/24 02:28 DC 05/09/24 13:04 2 GM Cefepime HCl (MAXipime 2 gm vial) 2 gm Q12H IVPB 05/10/24 03:00 05/20/24 02:59 05/10/24 03:13 2 GM Enoxaparin Sodium (Lovenox) 40 mg DAILY SQ 05/10/24 09:00 06/09/24 08:59 Famotidine (Pepcid 20mg Vial) 20 mg BID IV 05/09/24 21:00 06/08/24 20:59 05/09/24 21:39 20 MG Finasteride (PROscar 5 MG TAB) 5 mg DAILY PO 05/10/24 09:00 06/09/24 08:59 Guaifenesin/ Dextromethorphan (RobiTUSSin DM 200/20MG 10ML) 10 ml Q6H PRN PO COUGH 05/09/24 12:00 06/08/24 11:59 Home Med (Home Medication) Fluticasone/ Umeclidin/ Vilan... DAILY IH 05/10/24 09:00 06/09/24 08:59 Home Med (Home Medication) Saccharomyces Boulardii (Probiot... DAILY PO 05/10/24 09:00 06/09/24 08:59 Home Med (Home Medication) Ubidecarenone (Coq-10) 100 MG DAILY PO 05/10/24 09:00 06/09/24 08:59 Magnesium Sulfate 50 ml @ 0 mls/hr PROTOCOL IV 05/09/24 12:00 06/08/24 11:59 Methylprednisolone Sodium Succinate (Solu-medROL 40MG) 40 mg Q8H IVP 05/09/24 17:00 05/10/24 02:29 DC 05/09/24 17:23 40 MG Methylprednisolone Sodium Succinate (Solu-medROL 40MG) 40 mg Q8H IVP 05/10/24 03:00 06/09/24 02:59 05/10/24 03:13 40 MG Montelukast Sodium (SinguLAIR) 10 mg DAILY PO 05/10/24 09:00 06/09/24 08:59 Ondansetron HCl (zoFRAN 4MG INJ) 4 mg Q8H PRN IVP NAUSEA/VOMITING 05/09/24 12:00 06/08/24 11:59 Pantoprazole Sodium (PROTonix 40MG TAB) 40 mg DAILY PO 05/10/24 09:00 06/09/24 08:59 Potassium Chloride 100 ml @ 100 mls/hr AD PRN IV POTASSIUM PROTOCOL 05/09/24 12:00 06/08/24 11:59 Potassium Chloride (K-Dur/Klor-Con 20meq) 20 meq AD PRN PO POTASSIUM PROTOCOL 05/09/24 12:00 06/08/24 11:59 Potassium Chloride (KCl 10% Elixir 20meq/15ml) 20 meq AD PRN PO POTASSIUM PROTOCOL 05/09/24 12:00 06/08/24 11:59 Sodium Chloride 1,000 ml @ 75 mls/hr [id number] IV 05/09/24 12:30 05/11/24 12:30 05/09/24 13:04 75 MLS/HR Sotalol HCl (BetaPACE) 40 mg BID PO 05/09/24 21:00 06/08/24 20:59 05/09/24 21:41 40 MG DIAGNOSTICS / RADIOLOGY: [ ] ASSESSMENT: Acute on chronic COPD exacerbation, POA Acute hypoxemic/hypercapnic respiratory failure requiring oxygen supplementation. Failure of outpatient therapy for COPD exacerbation, POA History of COPD, POA Concern for developing community-acquired pneumonia, POA Leukocytosis, POA History of cardiac arrhythmia, POA BPH, POA PLAN: Continue medical-surgical floor under telemetry monitoring Continue with supplemental O2 therapy to maintain O2 saturations greater than 90% IV hydration with NS at 75 mL/hour Follow up with respiratory culture, blood culture Continue antibiotics with IV cefepime 2 g b.i.d. Continue IV Solu-Medrol 40 mg q.8 hours Follow up consultation with pulmonology Home medications were reconciled and updated Continue with PPI for GI prophylaxis, Lovenox for DVT prophylaxis Anticipate hospitalization for 48-72 hours pending improvement of clinical st atus and follow up on respiratory cultures Current Medications Medications (Trade) Dose Ordered Sig/Nora Route PRN Reason Start Time Stop Time Status Last Admin Famotidine (Pepcid 20mg Vial) 20 mg BID IV 05/09/24 21:00 06/08/24 20:59 05/10/24 09:21 Benzonatate (Tessalon 100mg Caps) 100 mg BID PO 05/09/24 21:00 06/08/24 20:59 05/10/24 09:21 Pantoprazole Sodium (PROTonix 40MG TAB) 40 mg DAILY PO 05/10/24 09:00 06/09/24 08:59 05/10/24 09:21 Finasteride (PROscar 5 MG TAB) 5 mg DAILY PO 05/10/24 09:00 06/09/24 08:59 05/10/24 09:22 Montelukast Sodium (SinguLAIR) 10 mg DAILY PO 05/10/24 09:00 06/09/24 08:59 05/10/24 09:22 Sotalol HCl (BetaPACE) 40 mg BID PO 05/09/24 21:00 06/08/24 20:59 05/10/24 09:21 Home Med (Home Medication) Fluticasone/ Umeclidin/ Vilan... DAILY IH 05/10/24 09:00 06/09/24 08:59 Atorvastatin Calcium (LIPItor 40MG) 80 mg HS PO 05/09/24 21:00 06/08/24 20:59 05/09/24 21:41 Home Med (Home Medication) Saccharomyces Boulardii (Probiot... DAILY PO 05/10/24 09:00 06/09/24 08:59 Home Med (Home Medication) Ubidecarenone (Coq-10) 100 MG DAILY PO 05/10/24 09:00 06/09/24 08:59 Enoxaparin Sodium (Lovenox) 40 mg DAILY SQ 05/10/24 09:00 06/09/24 08:59 05/10/24 09:22 Albuterol (DUOneb) 1 UDVIAL Q6H PRN IH SHORTNESS OF BREATH 05/09/24 23:30 06/08/24 23:29 Cefepime HCl (MAXipime 2 gm vial) 2 gm Q12H IVPB 05/10/24 03:00 05/20/24 02:59 05/10/24 16:11 Methylprednisolone Sodium Succinate (Solu-medROL 40MG) 40 mg Q8H IVP 05/10/24 03:00 06/09/24 02:59 05/10/24 18:17 Azithromycin 250 ml @ 250 mls/hr Q24H IVPB 05/10/24 09:00 05/20/24 08:59 05/10/24 09:21 Budesonide (Pulmicort 0.5 Mg/2ml) 0.5 mg BIDRESP IH 05/10/24 18:00 06/09/24 17:59 05/10/24 18:55 Albuterol (DUOneb) 1 udvial [id number] IH 05/10/24 18:00 06/09/24 17:59 ATTESTATION BY PHYSICIAN I have seen and examined the patient. I reviewed the documentation, medical decision making, and treatment plan as noted by the mid-level provider above. I agree with the findings and plan of care. Shanta Ku MD, [facility] FAMILY LAW SPECIALIST May 10, 2024 07:25
[2024-05-10 07:33] LABS: BASOPHILS # (AUTO) 0.02 K/uL (0.00-0.20); BASOPHILS % (AUTO) 0.2 % (0.0-5.0); HEMATOCRIT 44.9 % (42-54); IMMATURE GRANULOCYTE ABSOLUTE 0.15 K/uL (0-1); LYMPHOCYTES % (AUTO) 7.7 % (21.0-51.0); MEAN CORPUSCULAR HEMOGLOBIN 28.9 pg (27.0-33.0); MEAN CORPUSCULAR HGB CONC 32.7 g/dL (32.0-36.0); MEAN CORPUSCULAR VOLUME 88.4 fL (79-99); MONOCYTES # (AUTO) 0.7 K/uL (0.1-1.0); MONOCYTES % (AUTO) 5.2 % (3.0-13.0); NEUTROPHILS # (AUTO) 10.9 K/uL (1.8-7.7); NEUTROPHILS % (AUTO) 85.7 % (40.0-77.0); PLATELET COUNT (AUTO) 266 K/uL (130-400); RED BLOOD CELL COUNT(AUTO) 5.08 MIL/uL (4.50-6.20); RED CELL DISTRIBUTION WIDTH 12.6 % (11.0-15.5); WHITE BLOOD COUNT (AUTO) 12.7 K/uL (4.8-10.8)
[2024-05-10 07:50] LABS: ALBUMIN 2.8 g/dL (3.5-5.0); BILIRUBIN,TOTAL 0.7 mg/dL (0.2-1.0); CREATININE 0.7 mg/dL (0.5-1.3); MAGNESIUM 2.2 mg/dL (1.80-2.40); POTASSIUM 5.4 mmol/L (3.5-5.1); TOTAL PROTEIN, SERUM 6.6 g/dL (6.0-8.3)
[2024-05-10] MEDS: Fluticasone/Umeclidin/Vilanter (Trelegy Ellipta 100-62.5-25MCG) IH SCH (09:00)
[2024-05-10] MEDS: SACCHAROMYCES BOULARDII PO SCH (09:00)
[2024-05-10] MEDS: Ubidecarenone (Coq-10) 100 MG PO SCH (09:00)
[2024-05-10] MEDS: PANTOPrazole 40 MG TAB DR PO SCH (09:21)
[2024-05-10] MEDS: AZITHROMYCIN 500MG+NS 250ML 250 ML IVPB SCH (09:21)
[2024-05-10] MEDS: finaSTERide 5 MG TABLET PO SCH (09:22)
[2024-05-10] MEDS: monteLUKAST sodIUM 10 MG TAB PO SCH (09:22)
[2024-05-10] MEDS: ENOXAPARIN SODIUM 40 MG/0.4 ML SYRINGE SQ SCH (09:22)
--- NOTE | 2024-05-10 10:54 | PN ---
[facility] PROGRESS NOTE Date Patient Seen: May 10, 2024 Time of Visit: 10:54 Supervising Physician: Dr. Juan Little PROBLEM LIST: Acute COPD exacerbation Acute on chronic hypoxemic respiratory failure on intermittent home oxygen Bilateral lobe pneumonia Hypertension Home oxygen dependent Former smoker, quit 27 years ago Plan: Continue on Cefepime, add Azithromycin Continue on solu-medrol 40mg IVP every 8 hours Started on CPT and IS Continue on Duonebs We will continue to follow Continue current medical management INTERVAL HISTORY: Patient assessed at bedside. AAOX3. Currently on 02@3LPM via [place]. States he feels better overall. Complains of minimal cough and phlegm production. Denies any chest pain, abdominal pain, nausea or vomiting. at bedside. States he wears home oxygen intermittently and he came from [place] and wants to go back home soon. REVIEW OF SYSTEMS: 12 point ROS reviewed with patient. Pertinent positives mentioned above. Otherwise negative. PHYSICAL EXAM: GENERAL: alert, weak, awake oriented x 3 HEENT: EOMI, Sclera non icteric, moist mucosa NECK: Supple, no JVD, trachea midline LUNGS: Diminished breath sounds bilaterally. No wheezes HEART: Regular rate and rhythm. Normal S1 and S2, without murmurs ABD: Abdomen soft, nontender. Bowel sounds present EXT: No clubbing cyanosis or edema NEURO: Alert and oriented to person, follows commands Vital Signs (last 8hr) Date Time Temp Pulse Resp B/P (MAP) Pulse Ox O2 Delivery O2 Flow Rate FiO2 05/10/24 08:00 97.3 73 18 142/85 95 Nasal Cannula 3.0 05/10/24 07:16 66 18 N/Cannula Low lpm 4.0 36 05/10/24 07:12 66 18 05/10/24 04:00 97.7 63 22 150/85 92 Nasal Cannula 3.0 LABS: Hematology Labs: Test 05/10/24 07:17 05/09/24 11:55 Range/Units White Blood Count 12.7 H 4.8-10.8 K/uL Red Blood Count 5.08 4.50-6.20 MIL/uL Hemoglobin 14.7 14.0-18.0 g/dL Hematocrit 44.9 42-54 % Mean Corpuscular Volume 88.4 79-99 fL Mean Corpuscular Hemoglobin 28.9 27.0-33.0 pg Mean Corpuscular Hemoglobin Concent 32.7 32.0-36.0 g/dL Red Cell Distribution Width 12.6 11.0-15.5 % Platelet Count 266 130-400 K/uL Mean Platelet Volume 10.0 7.5-10.5 fL Immature Granulocyte % (Auto) 1.2 H 0-1 % Neutrophils (%) (Auto) 85.7 H 40.0-77.0 % Lymphocytes (%) (Auto) 7.7 L 21.0-51.0 % Monocytes (%) (Auto) 5.2 3.0-13.0 % Eosinophils (%) (Auto) 0.0 0.0-8.0 % Basophils (%) (Auto) 0.2 0.0-5.0 % Neutrophils # (Auto) 10.9 H 1.8-7.7 K/uL Lymphocytes # (Auto) 1.0 1.0-4.8 K/uL Monocytes # (Auto) 0.7 0.1-1.0 K/uL Eosinophils # (Auto) 0.00 0.00-0.70 K/uL Basophils # (Auto) 0.02 0.00-0.20 K/uL Absolute Immature Granulocyte (auto 0.15 0-1 K/uL Nucleated Red Blood Cells 0.0 0.0-0.19 % White Cell Morphology Comment See comments Erythrocyte Sedimentation Rate 20 0-20 MM/HR Chemistry Labs: Test 05/10/24 07:17 05/09/24 11:55 05/09/24 10:16 Range/Units Sodium Level 143 136-145 mmol/L Potassium Level 5.4 H 3.5-5.1 mmol/L Chloride Level 107 101-111 mmol/L Carbon Dioxide Level 34 H 21-32 mmol/L Blood Urea Nitrogen 21 H 7-18 mg/dL Creatinine 0.7 0.5-1.3 mg/dL Glomerular Filtration Rate Calc 95 >90 mL/min Random Glucose 128 H 70-105 mg/dL Total Calcium 9.3 8.5-10.1 mg/dL Magnesium Level 2.20 1.80-2.40 mg/dL Total Bilirubin 0.7 0.2-1.0 mg/dL Aspartate Amino Transf (AST/SGOT) 15 10-37 U/L Alanine Aminotransferase (ALT/SGPT) 23 12-78 U/L Alkaline Phosphatase 63 50-136 U/L Total Protein 6.6 6.0-8.3 g/dL Albumin 2.8 L 3.5-5.0 g/dL Direct Bilirubin 0.2 0.0-0.3 mg/dL C-Reactive Protein, Quantitative 55.40 H 0.5-3.0 mg/L Total Creatine Kinase 20 L 21-232 U/L Troponin I High Sensitivity 8 4-75 ng/L B-Type Natriuretic Peptide 21 0-100 pg/mL Procalcitonin < 0.05 L 0.05-0.5 ng/mL DIAGNOSTICS / RADIOLOGY RESULTS: NA Disposition: per primary team XIN LITTLE [employer]ITOR CAR OPERATOR May 10, 2024 10:54
[2024-05-10] MEDS: kayEXALate 15GM/60ML PO ONE (11:18)
--- NOTE | 2024-05-10 14:59 | NUR ---
DCP/INITIAL ASSESSMENT SW spoke with patient. He lives with spouse, Khadijah Treviño. They are [place] from [place]. Patient has no home services. DME: O2 concentrator/portable. He is able to complete ADLs and drives. PCP is Dr. Vazquez. Pharmacy is [facility] located on [facility]. Patient has no issues with having stable custodial to live in or transportation. He and spouse have lived in their home for some time. No concerns voiced regarding not having enough food in the home. No safety concerns voiced regarding returning home. DCP is home. Addendum: 05/10/24 at 1502 by GIN KAUFMAN Amended: Links added.
--- NOTE | 2024-05-10 15:02 | NUR ---
LOCAL [address]ESS [id number] [place] [address]
[2024-05-10] MEDS: IpraTROPium/alBUTERol SULFATE 3 ML SOLUTION IH SCH (18:00)
[2024-05-10] MEDS: BUDESONIDE 0.5 MG/2 ML INH IH SCH (18:55)
[2024-05-11] VITALS (8 sets, daily range): BP systolic 147–166; BP diastolic 74–86; PULSE 42–78; RESP 17–22; TEMP 97.7–97.9; O2SAT 95–97
[2024-05-11 04:55] LABS: BASOPHILS # (AUTO) 0.01 K/uL (0.00-0.20); BASOPHILS % (AUTO) 0.1 % (0.0-5.0); HEMATOCRIT 41.9 % (42-54); IMMATURE GRANULOCYTE ABSOLUTE 0.12 K/uL (0-1); LYMPHOCYTES % (AUTO) 7.4 % (21.0-51.0); MEAN CORPUSCULAR HEMOGLOBIN 28.6 pg (27.0-33.0); MEAN CORPUSCULAR HGB CONC 31.7 g/dL (32.0-36.0); MEAN CORPUSCULAR VOLUME 90.1 fL (79-99); MONOCYTES # (AUTO) 0.8 K/uL (0.1-1.0); MONOCYTES % (AUTO) 6.1 % (3.0-13.0); NEUTROPHILS # (AUTO) 11.5 K/uL (1.8-7.7); NEUTROPHILS % (AUTO) 85.5 % (40.0-77.0); PLATELET COUNT (AUTO) 265 K/uL (130-400); RED BLOOD CELL COUNT(AUTO) 4.65 MIL/uL (4.50-6.20); RED CELL DISTRIBUTION WIDTH 12.7 % (11.0-15.5); WHITE BLOOD COUNT (AUTO) 13.4 K/uL (4.8-10.8)
[2024-05-11 05:22] LABS: ALBUMIN 2.6 g/dL (3.5-5.0); BILIRUBIN,TOTAL 0.6 mg/dL (0.2-1.0); CREATININE 0.8 mg/dL (0.5-1.3); TOTAL PROTEIN, SERUM 5.9 g/dL (6.0-8.3)
[2024-05-11] MEDS ORDERED: CEFD300C3 PO (11:51)
--- NOTE | 2024-05-11 11:55 | DS ---
Discharge Summary Hospital Course Summary: 79-year-old white male who came with increasing shortness for breath long history of COPD on nighttime oxygen. He was started on broad-spectrum antibiotics in the form of Zithromax and cefepime IV given budesonide via inhaler. He states on hospital day 3. That he is feeling much better he is to the bathroom he states that last time he gave himself a sponge bath which he would not have been able to do at home. 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 Failure of outpatient therapy for COPD exacerbation, POA History of COPD, POA Concern for developing community-acquired pneumonia, POA Leukocytosis, POA History of cardiac arrhythmia, POA BPH, POA PLAN: Continue medical-surgical floor under telemetry monitoring Continue with supplemental O2 therapy to maintain O2 saturations greater than 90% IV hydration with NS at 75 mL/hour Follow up with respiratory culture, blood culture Continue antibiotics with IV cefepime 2 g b.i.d. Continue IV Solu-Medrol 40 mg q.8 hours Follow up consultation with pulmonology Home medications were reconciled and updated Continue with PPI for GI prophylaxis, Lovenox for DVT prophylaxis Anticipate hospitalization for 48-72 hours pending improvement of clinical status and follow up on respiratory cultures Current Medications Medications (Trade) Dose Ordered Sig/Nora Route PRN Reason Start Time Stop Time Status Last Admin Famotidine (Pepcid 20mg Vial) 20 mg BID IV 05/09/24 21:00 06/08/24 20:59 05/10/24 09:21 Benzonatate (Tessalon 100mg Caps) 100 mg BID PO 05/09/24 21:00 06/08/24 20:59 05/10/24 09:21 Pantoprazole Sodium (PROTonix 40MG TAB) 40 mg DAILY PO 05/10/24 09:00 06/09/24 08:59 05/10/24 09:21 Finasteride (PROscar 5 MG TAB) 5 mg DAILY PO 05/10/24 09:00 06/09/24 08:59 05/10/24 09:22 Montelukast Sodium (SinguLAIR) 10 mg DAILY PO 05/10/24 09:00 06/09/24 08:59 05/10/24 09:22 Sotalol HCl (BetaPACE) 40 mg BID PO 05/09/24 21:00 06/08/24 20:59 05/10/24 09:21 Home Med (Home Medication) Fluticasone/ Umeclidin/ Vilan... DAILY IH 05/10/24 09:00 06/09/24 08:59 Atorvastatin Calcium (LIPItor 40MG) 80 mg HS PO 05/09/24 21:00 06/08/24 20:59 05/09/24 21:41 Home Med (Home Medication) Saccharomyces Boulardii (Probiot... DAILY PO 05/10/24 09:00 06/09/24 08:59 Home Med (Home Medication) Ubidecarenone (Coq-10) 100 MG DAILY PO 05/10/24 09:00 06/09/24 08:59 Enoxaparin Sodium (Lovenox) 40 mg DAILY SQ 05/10/24 09:00 06/09/24 08:59 05/10/24 09:22 Albuterol (DUOneb) 1 UDVIAL Q6H PRN IH SHORTNESS OF BREATH 05/09/24 23:30 06/08/24 23:29 Cefepime HCl (MAXipime 2 gm vial) 2 gm Q12H IVPB 05/10/24 03:00 05/20/24 02:59 05/10/24 16:11 Methylprednisolone Sodium Succinate (Solu-medROL 40MG) 40 mg Q8H IVP 05/10/24 03:00 06/09/24 02:59 05/10/24 18:17 Azithromycin 250 ml @ 250 mls/hr Q24H IVPB 05/10/24 09:00 05/20/24 08:59 05/10/24 09:21 Budesonide (Pulmicort 0.5 Mg/2ml) 0.5 mg BIDRESP IH 05/10/24 18:00 06/09/24 17:59 05/10/24 18:55 Albuterol (DUOneb) 1 udvial [id number] IH 05/10/24 18:00 06/09/24 17:59 Home Medications: Reported Medications Ubidecarenone (Coq-10) 100 Mg Capsule, 100 MG PO DAILY, CAP 05/09/24 Benzonatate (Tessalon Perles) 100 Mg Cap, 1 CAP PO BID for cough for 10 Days, #30 CAP 0 Refills 05/09/24 Saccharomyces Boulardii (Probiotic) 250 Mg Capsule, 1 CAP PO DAILY for 14 Days, #14 CAP 0 Refills 05/09/24 Fluticasone/Umeclidin/Vilanter (Trelegy Ellipta 100-62.5-25) 100-62.5 Blst.w.dev, 1 PUFF IH DAILY for 30 Days, #1 EACH 0 Refills 05/09/24 Finasteride (Finasteride) 5 Mg Tablet, 1 TAB PO DAILY for 30 Days, #30 TAB 0 Refills 05/09/24 Montelukast Sodium (Montelukast Sodium) 10 Mg Tablet, 1 TAB PO DAILY for 30 Days, #30 TAB 0 Refills 05/09/24 Rosuvastatin Calcium (Crestor) 40 Mg Tab, 1 TAB PO DAILY for 30 Days, #30 TAB 0 Refills 05/09/24 Esomeprazole Magnesium (Nexium) 40 Mg Capsule.dr, 1 CAP PO DAILY for 30 Days, #30 CAP 0 Refills 05/09/24 Sotalol HCl (Sotalol) 80 Mg Tablet, 40 TAB PO BID for 30 Days, #60 TAB 0 Refills 05/09/24 Time spent arranging discharge: 1-30 minutes PEPE BO MD May 11, 2024 11:55
--- NOTE | 2024-05-11 12:10 | NUR ---
Discharge Patient been discharge home, all discharge instructions given to patient, all questions answered, no concerns at this time, aware of antibiotics prescription sent to pharmacy, no signs of distress at this time.
== END 2024-05-11 12:33 | disposition home or self-care (01) | DRG 193 ==
LOC: EDH 09:47 → EDHIP 11:32 → 4CH 05-10
PROVIDERS: ADMIT Internal Medicine; ATTEND Internal Medicine
DX: J18.9 Pneumonia, unspecified organism (principal); J96.21 Acute and chronic respiratory failure with hypoxia; J96.22 Acute and chronic respiratory failure with hypercapnia; J44.0 Chronic obstructive pulmonary disease with (acute) lower respiratory infection; J44.1 Chronic obstructive pulmonary disease with (acute) exacerbation; I10 Essential (primary) hypertension; E78.00 Pure hypercholesterolemia, unspecified; N40.0 Benign prostatic hyperplasia without lower urinary tract symptoms; T36.8X5A Adverse effect of other systemic antibiotics, initial encounter; Z87.891 Personal history of nicotine dependence; Z88.0 Allergy status to penicillin; Z99.81 Dependence on supplemental oxygen; Z79.899 Other long term (current) drug therapy; D72.829 Elevated white blood cell count, unspecified
CPT/HCPCS: 36415; 36600; 71046; 71250; 80048; 80053; 80076; 82435; 82550; 82803; 82947; 83605; 83735; 83880; 84132; 84145; 84295; 84484; 85018; 85025; 85651; 86140; 87040; 87071; 87086; 87186; 87205; 87426; 87804; 93005; 94640; 94664; 94667; 94668; G0378; J0456; J0692; J1650; J2919; J3490